=== PATIENT | female | born 1975 | race Caucasian/White ===

== ENCOUNTER 2017-08-23 16:11 | Emergency (ER) | payer SELFPAY ==
[~2017-08-23] VITALS: Ht 162.6 cm; Wt 82.4 kg
[~2017-08-23 16:11] MED LIST: ACETTAB3 OR; AMOXICILLIN500 M1 OR; CEPHALEXIN500 MG OR; CITALOPRAM20 MG PO; EXCEDRI1 OR; LORTAB5 PO; NAPROSYN500 MG OR; NAPROSYN500 MG PO; NO HOME MEDS; NO HOMEMEDS; PREMARIN VAG0.625 MG VA; ULTRAM50 M1 OR; ZOLENE HC AD
[2017-08-23] MEDS ORDERED: CHERATUSSIN PO (16:26)
[2017-08-23] MEDS ORDERED: TAM75CAP PO (16:26)
[2017-08-23 16:29] VITALS: BP 140/88
== END 2017-08-23 16:36 | disposition home or self-care (01) | DRG 153 ==
LOC: ED 16:11
DX: J11.1 Influenza due to unidentified influenza virus with other respiratory manifestations (principal); F17.220 Nicotine dependence, chewing tobacco, uncomplicated

== ENCOUNTER 2017-11-09 12:15 | Emergency (ER) | payer SELFPAY ==
[~2017-11-09] VITALS: Ht 162.6 cm; Wt 82.2 kg
[~2017-11-09 12:15] MED LIST changes: +CHERATUSSIN PO; +TAM75CAP PO
[2017-11-09] MEDS ORDERED: DEPRESSION MED (12:36)
[2017-11-09 12:38] VITALS: BP 141/85
[2017-11-09] MEDS ORDERED: MEDDOSEPAK PO (12:47)
[2017-11-09] MEDS ORDERED: KEFLEX500 M1 PO (12:47)
[2017-11-09] MEDS ORDERED: BENADRYL25 M1 PO (12:47)
== END 2017-11-09 13:05 | disposition home or self-care (01) | DRG 918 ==
LOC: ED 12:15
DX: T63.481A Toxic effect of venom of other arthropod, accidental (unintentional), initial encounter (principal); L03.116 Cellulitis of left lower limb; R22.42 Localized swelling, mass and lump, left lower limb; Y92.009 Unspecified place in unspecified non-institutional (private) residence as the place of occurrence of the external cause

== ENCOUNTER 2017-12-18 12:46 | Emergency (ER) | payer SELFPAY ==
[~2017-12-18] VITALS: Ht 162.6 cm; Wt 100.0 kg
[~2017-12-18 12:46] MED LIST changes: +BENADRYL25 M1 PO; +DEPRESSION MED; +KEFLEX500 M1 PO; +MEDDOSEPAK PO
[2017-12-18] MEDS ORDERED: IBUPROFEN600 MG PO (13:14)
[2017-12-18] MEDS ORDERED: FLEXERIL PO (13:14)
[2017-12-18 13:25] VITALS: BP 122/62
== END 2017-12-18 13:25 | disposition home or self-care (01) | DRG 93 ==
LOC: ED 12:46
DX: G89.29 Other chronic pain (principal); M41.9 Scoliosis, unspecified; F17.200 Nicotine dependence, unspecified, uncomplicated; M54.5 Low back pain; M62.830 Muscle spasm of back; M25.552 Pain in left hip

== ENCOUNTER 2019-06-28 13:14 | Emergency (ER) | payer SELFPAY ==
[~2019-06-28] VITALS: Ht 162.6 cm; Wt 90.0 kg
[~2019-06-28 13:14] MED LIST changes: +FLEXERIL PO; +IBUPROFEN600 MG PO
[2019-06-28] MEDS ORDERED: HYDROXYCHLOR200 M1 PO (15:24)
[2019-06-28] MEDS ORDERED: ALLERGY RELF10 M3 PO (15:25)
[2019-06-28] MEDS ORDERED: LISINOPRIL5 MG PO (15:26)
[2019-06-28] MEDS ORDERED: BIOTIN5000 MCG PO (15:26)
[2019-06-28] MEDS ORDERED: LEVOTHYROXIN75 MCG PO (15:27)
[2019-06-28] MEDS ORDERED: FLEXERIL PO (15:39)
[2019-06-28] MEDS ORDERED: MEDDOSEPAK PO (15:56)
[2019-06-28 16:00] VITALS: BP 129/74
== END 2019-06-28 16:00 | disposition home or self-care (01) | DRG 552 ==
LOC: ED 13:14
DX: M54.41 Lumbago with sciatica, right side (principal); F17.290 Nicotine dependence, other tobacco product, uncomplicated

== ENCOUNTER 2021-08-28 14:38 | Emergency (ER) | payer OTHER ==
[~2021-08-28] VITALS: Ht 162.6 cm; Wt 9090.0 kg
[~2021-08-28 14:38] MED LIST changes: +ALLERGY RELF10 M3 PO; +BIOTIN5000 MCG PO; +HYDROXYCHLOR200 M1 PO; +LEVOTHYROXIN75 MCG PO; +LISINOPRIL5 MG PO
[2021-08-28 15:51] VITALS: BP 131/102
[2021-08-28 16:01] VITALS: BP 144/79
[2021-08-28] MEDS ORDERED: FLEXERIL5 M1 PO (18:09)
[2021-08-28] MEDS ORDERED: VOLTAREN1%GEL TOP (18:09)
[2021-08-28] MEDS ORDERED: TRAMADOL HYDROC50 M1 PO (18:09)
[2021-08-28 18:13] VITALS: BP 143/88
[2021-08-28 18:42] VITALS: BP 144/79
== END 2021-08-28 18:50 | disposition home or self-care (01) | DRG 552 ==
LOC: ED 14:38
DX: M54.50 Low back pain, unspecified (principal); M41.9 Scoliosis, unspecified; F32.A Depression, unspecified; F17.200 Nicotine dependence, unspecified, uncomplicated

== ENCOUNTER 2024-02-17 18:13 | Emergency (ER) | payer SELFPAY ==
[~2024-02-17] VITALS: Ht 162.6 cm; Wt 92.5 kg
[~2024-02-17 18:13] MED LIST changes: +FLEXERIL5 M1 PO; +TRAMADOL HYDROC50 M1 PO; +VOLTAREN1%GEL TOP
[2024-02-17 18:19] VITALS: BP 147/93
[2024-02-17] MEDS ORDERED: CEPHALEXIN500 M1 PO (18:29)
[2024-02-17 18:30] VITALS: BP 134/86
[2024-02-17 18:45] VITALS: BP 145/96
== END 2024-02-17 18:47 | disposition home or self-care (01) | DRG 125 ==
LOC: ED 18:13
DX: H00.031 Abscess of right upper eyelid (principal)